=== PATIENT | female | born 1950 | race Caucasian/White ===

== ENCOUNTER 2019-05-06 02:15 | Emergency (ER) | payer MEDICARE ==
[~2019-05-06] VITALS: Ht 175.3 cm; Wt 79.0 kg
[~2019-05-06 02:15] MED LIST: ASPI-515 PO; CELE200C PO
[2019-05-06 04:06] LABS: ALBUMIN 3.7 g/dL (3.4-5.0); ANION GAP 5 mmol/L (5-15); CHLORIDE 112 mmol/L (98-107); CREATININE 0.82 mg/dL (0.55-1.02)
[2019-05-06 04:10] LABS: TROPONIN I < 0.015 ng/mL (0.000-0.045)
[2019-05-06 04:15] LABS: BASOPHILS # (AUTO) 0.02 x10^3/uL (0-0.1); BASOPHILS % (AUTO) 1 % (0-1); EOSINOPHILS # (AUTO) 0.05 x10^3/uL (0-0.4); EOSINOPHILS % (AUTO) 1 % (1-7); LYMPHOCYTES # (AUTO) 1.49 x10^3/uL (1-3.4); LYMPHOCYTES % (AUTO) 37 % (22-44); MD NO; MEAN CORPUSCULAR HEMOGLOBIN 32.8 pg (27.0-34.8); MEAN CORPUSCULAR HGB CONC 32.8 g/dL (32.4-35.8); MEAN CORPUSCULAR VOLUME 99.7 fL (80-100); MONOCYTES # (AUTO) 0.37 x10^3/uL (0.2-0.8); MONOCYTES % (AUTO) 9 % (2-9); NEUTROPHILS % (AUTO) 52 % (42-75); PLATELET COUNT 227 x10^3/uL (130-400); RED BLOOD COUNT 3.94 x10^6/uL (3.82-5.3); RED CELL DISTRIBUTION WIDTH 12.8 % (9.6-15.2)
[2019-05-06 04:21] VITALS: BP 111/58
== END 2019-05-06 05:02 | disposition home or self-care (01) ==
LOC: ED 03:55
DX: I48.0 Paroxysmal atrial fibrillation (principal); Z72.89 Other problems related to lifestyle
CPT/HCPCS: 36415; 80048; 82040; 83735; 84484; 85025; 93005; 99284

== ENCOUNTER 2021-01-21 12:48 | Outpatient (CLI) | payer MEDICARE ==
[~2021-01-21 12:48] MED LIST changes: -ASPI-515 PO; +ASPI-963 PO
== END 2021-01-21 23:59 | disposition home or self-care (01) ==
LOC: CFH 12:48
PROVIDERS: ATTEND Internal Medicine Cardiovascular Disease
DX: I08.0 Rheumatic disorders of both mitral and aortic valves (principal)
CPT/HCPCS: 93306; 93356